=== PATIENT | male | born 1940 | race Caucasian/White ===

== ENCOUNTER 2017-02-04 03:25 | Inpatient (IN) ==
[2017-02-04] MEDS ORDERED: Naloxone 0.4 MG/ML INJ IVP PRN (06:24)
[2017-02-04] MEDS ORDERED: Acetaminophen 325 MG TABLET PO PRN (06:24)
[2017-02-04] MEDS ORDERED: *HR* OxyCODONE Immed Rel 5 MG TABLET PO PRN (06:31)
[2017-02-04] MEDS ORDERED: Ipratropium/Albuterol Neb 3 ML IH PRN (06:35)
--- NOTE | 2017-02-04 06:39 | Internal Med History&Physical ---
Date of Encounter: 02/04/17 Time of Encounter: 06:38 Assessment and Plan (1) Acute cholecystitis Current visit: Yes Status: Acute CT scan of the abdomen showed dilated gallbladder with questionable pericholecystic fluid suggestive of cholecystitis. However, on my clinical exam , there is no tenderness in the RUQ area. Will obtain ultrasound scan of the gallbladder. Emperically started on meropenem. Surgical consultation requested. (2) UTI (urinary tract infection) Current visit: Yes Status: Acute Abnormal urinalysis. Urine cultures and blood cultures requested. Empirically started on meropenem Qualifiers: Urinary tract infection type: site unspecified Hematuria presence: with hematuria Qualified Code(s): N39.0 - Urinary tract infection, site not specified; R31.9 - Hematuria, unspecified (3) Abnormal LFTs Current visit: Yes Status: Acute Possibly due to cholecystitis versus sepsis / infection (4) Bladder cancer Current visit: Yes Status: Chronic Urologist is following the pt. pt has hematuria. Leggett cath in place Qualifiers: Bladder location: lateral wall Qualified Code(s): C67.2 - Malignant neoplasm of lateral wall of bladder (5) Thrombocytopenia Current visit: Yes Status: Acute Suspect is due to acute infection / DIC. Hold aspirin. Fibrinogen level and D- dimers requested. Will request for Hematology / oncology consult. (6) HTN (hypertension) Current visit: Yes Status: Chronic Will hold antihypertensive medications, as the BP is borderline Qualifiers: Hypertension type: essential hypertension Qualified Code(s): I10 - Essential (primary) hypertension (7) Coagulopathy Current visit: Yes Status: Acute Possibly due to Infection / DIC. Fibrinogen level and D-dimers requested. Hematology / Oncology consult (8) Elevated troponin Current visit: Yes Status: Acute Likely secondary to sepsis / demand ischemia. EKG and echocardiogram requested. Trend troponins. Consider Cardiology consult (9) DVT prophylaxis Current visit: Yes Status: Acute SCDs Internal Medicine - H&P: HPI Chief complaint: Nausea Admitted From: Emergency Dept Plans for Post Hospital Care: Home History of present illness: Mr. Bell is a 76 year old male with Past medical history significant for CAD / NC s/p CABG, suspected bladder cancer with hematuria s/p cystoscopy, hyperlipidemia, hypertension. Pt reports that he has not been feeling well for the last 3 days. He reports nausea and one episode of vomiting, poor apetite. Apparently did not eat for a few days. He reports some nauseating pain in the suprapubic area, but denies any epigastric/right upper quadrant pain. He reports hematuria with clots. He denies chest pain. He reports some shortness of breath with exertion. Denies cough or expectoration. He reports dizziness when he stands up. He presented to the ER at [facility]. CT scan of the abdomen reported dilated gallbladder with question of pericholecystic fluid suggestive of cholecystitis. Labs showed Thrombocytopenia with platelet count of 40. ER physician discussed with the surgeon Dr. Blackwood, who recommended admission to the hospitalist service for further management, with surgical consult. Past Med Surg Social Fam HX - Past Medical History Medical history: hyperlipidemia, hypertension, malignancy, myocardial infarction Psychiatric history: no psych history - Past Surgical History Surgical History: angioplasty/stent, cancer surgery, orthopedic, other, pacemaker - Social History Smoking Status: Former smoker Smokeless Tobacco Status: Yes Alcohol use: none Drug use: none - Family History Mother Adopted: No Living Status: Father Adopted: No Living Status: Hx Family Cancer: Yes Internal Medicine - H&P: Meds Amlodipine [Norvasc] 5 mg PO DAILY 09/13/16 [History] Aspirin 325 mg PO DAILY 09/13/16 [History] Carvedilol [Coreg] 25 mg PO BID 09/13/16 [History] Lisinopril/Hydrochlorothiazide [Zestoretic 20-12.5 mg Tablet] 1 each PO DAILY [History] Simvastatin [Zocor] 20 mg PO HS 09/13/16 [History] OxyCODONE Immed Rel [Roxicodone 5 MG] 5 mg PO Q6HR PRN #60 tablet 09/14/16 [Rx] Allergies hydrocodone Allergy (Verified 09/13/16 10:13) Itching tramadol Adverse Reaction (Verified 09/13/16 10:13) Itching All Systems PM: A 10-system review of systems was performed and is negative for pertinent findings except as documented above in the HPI. - Constitutional Vitals: Temp Pulse Resp BP Pulse Ox 98.3 F 88 14 100/66 92 L 02/04/17 05:27 02/04/17 05:27 02/04/17 05:27 02/04/17 05:27 02/04/17 05:27 Exam: General: Not in acute pain at the time of my evaluation. He is not able to complete sentences without feeling short of breath HEENT: Oral mucosa is dry. No conjunctival palor or scleral icterus Neck: No obvious neck swellings Lungs: Clear to auscultation Cardiac: Regular rate and rhythm. No significant murmurs Abdomen: Soft, mild supra-pubic tenderness. Bowel sounds present Genitourinary: No leggett catheter Neurological: Alert and oriented. No gross localizing deficits Psych: Not aggressive or agitated Extremities: Trace leg edema Skin: No generalized rash Internal Med - H&P Results - Labs CBC & Chem 7: 02/04/17 07:08 02/04/17 07:08 - Impressions ITS Impressions Chest X-Ray 02/04/17 06:29 IMPRESSION: 1. Minimal bibasilar opacification, which may represent atelectasis versus airspace disease. 2. Otherwise, no evidence of acute cardiopulmonary abnormality. D/ / Rodney Membreno MD / Rodney Membreno MD Interpreting Provider: Rodney Membreno MD
[2017-02-04] MEDS ORDERED: 0.9 % Sodium Chloride 1,000 ML IVC SCH (06:45)
[2017-02-04 07:23] LABS: Basophils % 0.2 %; Eosinophils % 0.2 %; Hematocrit 40.9 % (37.5-50.1); Hemoglobin 13.2 g/dL (12.9-16.9); Immature Granulocytes % 0.5 % (0-4); Immature Platelets 11.3 % (1.1-6.1); Lymphocytes % 12.2 %; Mean Corpuscular HGB Conc 32.3 g/dL (31.6-35.5); Mean Corpuscular Hemoglobin 27.3 pg (28.0-33.3); Mean Corpuscular Volume 84.5 fL (83.0-100.0); Mean Platelet Volume 10.4 fL (9.4-12.4); Monocytes # 0.9 K/mcL (0.0-1.3); Monocytes % 10.8 %; Neutrophils # 6.1 K/mcL (1.6-8.9); Red Blood Count 4.84 M/mcL (4.19-5.50); Red Cell Distribution Width 14.4 % (11.5-14.5); Segmented Neutrophils % 76.1 %
[2017-02-04] MEDS: Meropenem 1,000 MG in 0.9 % Sodium Chloride Mini Bag 100 ML IVPB SCH ×3 (07:25→21:32)
[2017-02-04 07:28] LABS: INR 2.1; Prothrombin Time 22.6 Seconds (9.4-12.1)
[2017-02-04 07:31] LABS: Activated Partial Thrombo Time 42.8 Seconds (26.0-36.0)
[2017-02-04 07:39] LABS: Alanine Aminotransferase 324 Units/L (0-55); Alkaline Phosphatase 127 Units/L (38-126); Aspartate Amino Transferase 327 Units/L (5-34); BUN/Creatinine Ratio 24 (6-26); Bilirubin,Total 1.1 mg/dL (0.2-1.2); Blood Urea Nitrogen 25 mg/dL (8-26); Calcium 11.7 mg/dL (8.6-10.8); Carbon Dioxide 21 mEq/L (19-29); Chloride 100 mEq/L (98-109); Glucose 86 mg/dL (70-99); Osmolality,Calculated 284 (280-300); Potassium 4.3 mEq/L (3.5-4.5); Sodium 135 mEq/L (136-145); Total Protein 5.9 g/dL (6.0-8.3); eGFR For African Americans > 60 (> 60); eGFR For Non-African Americans > 60 (> 60)
[2017-02-04 07:40] LABS: Albumin 2.5 g/dL (3.5-5.0); Albumin/Globulin Ratio 0.7 (1.1-2.2); Globulin 3.4 g/dL (2.4-3.5)
[2017-02-04 07:56] LABS: Platelet Count 33 K/mcL (140-400)
[2017-02-04 07:57] LABS: Platelet Estimate Marked Decrease (Normal)
--- NOTE | 2017-02-04 08:26 | Urology - Consult Note ---
Date of Encounter: 02/04/17 Time of Encounter: 08:24 - Assessment and Plan (1) Bladder cancer Current Visit: No Status: Acute Assessment and plan: At this point we will plan on keeping catheter in place for 1 day. Patient's urine is currently clear. I am concerned that if the patient's platelets continue to drop and the INR is not corrected the patient will start to develop gross hematuria. We will continue to follow along closely Qualifiers: Bladder location: lateral wall Qualified Code(s): C67.2 - Malignant neoplasm of lateral wall of bladder (2) Thrombocytopenia Current Visit: No Status: Acute Assessment and plan: Hematology has been consulted. Urology CN:HPI Consult date: 02/04/17 Reason for consult Urology: Other (bladder tumor) Requesting physician: Denver Blackwood History of present illness: Ralph is a 76 y/o male with a history of bladder cancer status post left nephroureterectomy in 2003. Patient had surveillance cystoscopies done up until about 6 years ago where he stopped having surveillance cystoscopies. Patient presented to my office this week with off-and-on gross hematuria. Cystoscopy was done which revealed large left lateral wall bladder tumor. Patient now admitted secondary to overall weakness. Patient was found to have profoundly low platelets which is new to the patient where he had normal labs in September. Patient had a catheter placed when arrival to the emergency department. Unsure of volume returned when catheter was placed. Patient's urine was clear. patient was also found to have elevated AST and ALT. CT abdomen and pelvis was done which revealed dilated gallbladder. On personal review the patient's bladder appears thickened on the left lateral wall consistent with known bladder tumor. There also appears to be an extension leaving the left lateral wall consistent with possible remnant left distal ureter. This appears thickened. Patient states that he over all feels very poor. Past Med Surg Social Fam HX - Past Medical History Medical history: hyperlipidemia, hypertension, malignancy, myocardial infarction Psychiatric history: no psych history - Past Surgical History Surgical History: angioplasty/stent, cancer surgery, orthopedic, other, pacemaker - Social History Smoking Status: Former smoker Smokeless Tobacco Status: Yes Alcohol use: none Drug use: none - Family History Mother Adopted: No Living Status: Father Adopted: No Living Status: Hx Family Cancer: Yes Medications and Allergies Amlodipine [Norvasc] 5 mg PO DAILY 09/13/16 [History] Aspirin 325 mg PO DAILY 09/13/16 [History] Carvedilol [Coreg] 25 mg PO BID 09/13/16 [History] Lisinopril/Hydrochlorothiazide [Zestoretic 20-12.5 mg Tablet] 1 each PO DAILY [History] Simvastatin [Zocor] 20 mg PO HS 09/13/16 [History] OxyCODONE Immed Rel [Roxicodone 5 MG] 5 mg PO Q6HR PRN #60 tablet 09/14/16 [Rx] Allergies hydrocodone Allergy (Verified 09/13/16 10:13) Itching tramadol Adverse Reaction (Verified 09/13/16 10:13) Itching Review of Systems - Constitutional malaise - EENT Nose, mouth and throat: no dizziness - Cardiovascular no chest pain - Respiratory dyspnea, no cough - Gastrointestinal abdominal pain - Genitourinary as per HPI - Musculoskeletal no back pain - Integumentary no erythema - Neurological no confusion - Psychiatric no anxiety - Hematologic/Lymphatic no easy bleeding - Allergic/Immunologic no throat swelling Exam Initial Vital Signs Temp Pulse Resp BP Pulse Ox 98.3 F 88 14 100/66 92 L 02/04/17 05:27 02/04/17 05:27 02/04/17 05:27 02/04/17 05:27 02/04/17 05:27 - General physical appearance Present: well developed - Eyes Present: PERRL - ENT Present: normal nares - Neck Present: no masses - Respiratory Present: other (Patient appears to be mildly struggling to get a breath) - Cardiovascular Cardiovascular exam IM: RRR - Abdomen Abdomen: Present: soft - Genitourinary other (Urine clear in tubing) - Integumentary Present: no rash - Neurologic Present: normal coordination - Musculoskeletal Present: other (Full range of motion 4) Urology Results - Labs 02/04/17 07:08 02/04/17 07:08 Abnormal lab results MCH 27.3 pg (28.0-33.3) L 02/04/17 07:08 Plt Count 33 K/mcL (140-400) L 02/04/17 07:08 Platelet Estimate Marked Decrease (Normal) L 02/04/17 07:08 Immature Plt Fraction 11.3 % (1.1-6.1) H 02/04/17 07:08 PT 22.6 Seconds (9.4-12.1) H 02/04/17 07:08 APTT 42.8 Seconds (26.0-36.0) H 02/04/17 07:08 Sodium 135 mEq/L (136-145) L 02/04/17 07:08 Calcium 11.7 mg/dL (8.6-10.8) H 02/04/17 07:08 Magnesium 1.0 mg/dL (1.6-2.6) L 02/04/17 07:08 AST 327 Units/L (5-34) H 02/04/17 07:08 ALT 324 Units/L (0-55) H 02/04/17 07:08 Alkaline Phosphatase 127 Units/L (38-126) H 02/04/17 07:08 Troponin I 0.32 ng/mL (0-0.03) H* 02/04/17 07:08 Serum Total Protein 5.9 g/dL (6.0-8.3) L 02/04/17 07:08 Albumin 2.5 g/dL (3.5-5.0) L 02/04/17 07:08 Albumin/Globulin Ratio 0.7 (1.1-2.2) L 02/04/17 07:08 Diabetes panel 02/04/17 Range/Units 07:08 Sodium 135 L (136-145) mEq/L Potassium 4.3 (3.5-4.5) mEq/L Chloride 100 (98-109) mEq/L Carbon Dioxide 21 (19-29) mEq/L BUN 25 (8-26) mg/dL Creatinine 1.03 (0.72-1.25) mg/dL Glucose 86 (70-99) mg/dL Calcium 11.7 H (8.6-10.8) mg/dL AST 327 H (5-34) Units/L ALT 324 H (0-55) Units/L Alkaline Phosphatase 127 H (38-126) Units/L Albumin 2.5 L (3.5-5.0) g/dL Calcium panel 02/04/17 Range/Units 07:08 Calcium 11.7 H (8.6-10.8) mg/dL Albumin 2.5 L (3.5-5.0) g/dL Pituitary panel 02/04/17 Range/Units 07:08 Sodium 135 L (136-145) mEq/L Potassium 4.3 (3.5-4.5) mEq/L Chloride 100 (98-109) mEq/L Carbon Dioxide 21 (19-29) mEq/L BUN 25 (8-26) mg/dL Creatinine 1.03 (0.72-1.25) mg/dL Glucose 86 (70-99) mg/dL Calcium 11.7 H (8.6-10.8) mg/dL Adrenal panel 02/04/17 Range/Units 07:08 Sodium 135 L (136-145) mEq/L Potassium 4.3 (3.5-4.5) mEq/L Chloride 100 (98-109) mEq/L Carbon Dioxide 21 (19-29) mEq/L BUN 25 (8-26) mg/dL Creatinine 1.03 (0.72-1.25) mg/dL Glucose 86 (70-99) mg/dL Calcium 11.7 H (8.6-10.8) mg/dL Total Bilirubin 1.1 (0.2-1.2) mg/dL AST 327 H (5-34) Units/L ALT 324 H (0-55) Units/L Alkaline Phosphatase 127 H (38-126) Units/L Albumin 2.5 L (3.5-5.0) g/dL All other labs normal. - Imaging CT scan - abdomen: image reviewed CT scan - pelvis: image reviewed Consult Discharge Plan - Plan Referrals: Nikolay Stout Jr, MD [Primary Care Provider] -
--- NOTE | 2017-02-04 08:33 | General Surgery Consult Note ---
Date of Encounter: 02/04/17 Time of Encounter: 08:32 History of Present Illness Consult date: 02/04/17 Requesting physician: Donna Bass History of present illness: Mr. Bell is a 76 year old male with a past medical history significant for bladder cancer who was recently evaluated by urology due to hematuria on where new bladder tumors were discovered. He states that he is scheduled for a urology procedure in February. He admits to a 2-3 day history of right lower abdominal pain, near the pelvis. He admits to occassional nausea and one episode of vomiting. He denies any diarrhea or constipation. Due to his symptoms he presented to [facility] where several studies were performed including a CT scan of the abdomen and pelvis (without contrast) and laboratory studies including LFTs. He has been transferred to [facility] due to elevated liver enzymes and concern for cholecystitis. The patient denies any upper abdominal pain symptoms currently or in the past. He denies any hematemesis or rectal bleeding. Past Med Surg Social Fam HX - Past Medical History Medical history: hyperlipidemia, hypertension, malignancy, myocardial infarction Psychiatric history: no psych history - Past Surgical History Surgical History: angioplasty/stent, cancer surgery, orthopedic, other, pacemaker - Social History Smoking Status: Former smoker Smokeless Tobacco Status: Yes Alcohol use: none Drug use: none - Family History Mother Adopted: No Living Status: Father Adopted: No Living Status: Hx Family Cancer: Yes Medications and Allergies Amlodipine [Norvasc] 5 mg PO DAILY 09/13/16 [History] Aspirin 325 mg PO DAILY 09/13/16 [History] Carvedilol [Coreg] 25 mg PO BID 09/13/16 [History] Lisinopril/Hydrochlorothiazide [Zestoretic 20-12.5 mg Tablet] 1 tab PO DAILY 11/28 [History] Simvastatin [Zocor] 20 mg PO HS 09/13/16 [History] OxyCODONE Immed Rel [Roxicodone 5 MG] 5 mg PO Q8HR PRN 02/04/17 [History] Allergies hydrocodone Allergy (Verified 09/13/16 10:13) Itching tramadol Adverse Reaction (Verified 09/13/16 10:13) Itching Review of Systems All systems PM: reviewed and no additional remarkable complaints except as stated All systems PM: A 10-system review of systems was performed and is negative for pertinent findings except as documented above in the HPI. General Surgery Exam Initial Vital Signs Temp Pulse Resp BP Pulse Ox 98.3 F 88 14 100/66 92 L 02/04/17 05:27 02/04/17 05:27 02/04/17 05:27 02/04/17 05:27 02/04/17 05:27 - Eyes PERRL, normal ocular movement - Neck no masses, trachea midline, no lymphadectomy - Cardiovascular Cardiovascular exam: Present: RRR, no murmurs/rubs/gallops - Abdomen Abdomen general surgery: Present: bowel sounds present, soft (No pain to palpation in the upper abdomen, even with significant palpation in the RUQ. Mild RLQ/pelvic pain.) - Integumentary Integumentary general surgery: Present: warm and dry - Neurologic Present: CN 2-12 grossly intact - Musculoskeletal Present: other (No clubbing, cyanosis, or edema) - Psychiatric Psychiatric general surgery: Present: other (mild confusion/forgetfulness) Exam Initial Vital Signs Temp Pulse Resp BP Pulse Ox 98.3 F 88 14 100/66 92 L 02/04/17 05:27 02/04/17 05:27 02/04/17 05:27 02/04/17 05:27 02/04/17 05:27 Results - Labs 02/05/17 02:20 02/05/17 02:20 Abnormal lab results MCH 27.3 pg (28.0-33.3) L 02/04/17 07:08 Plt Count 33 K/mcL (140-400) L 02/04/17 07:08 Platelet Estimate Marked Decrease (Normal) L 02/04/17 07:08 Immature Plt Fraction 11.3 % (1.1-6.1) H 02/04/17 07:08 PT 22.6 Seconds (9.4-12.1) H 02/04/17 07:08 APTT 42.8 Seconds (26.0-36.0) H 02/04/17 07:08 Sodium 135 mEq/L (136-145) L 02/04/17 07:08 Calcium 11.7 mg/dL (8.6-10.8) H 02/04/17 07:08 Magnesium 1.0 mg/dL (1.6-2.6) L 02/04/17 07:08 AST 327 Units/L (5-34) H 02/04/17 07:08 ALT 324 Units/L (0-55) H 02/04/17 07:08 Alkaline Phosphatase 127 Units/L (38-126) H 02/04/17 07:08 Troponin I 0.32 ng/mL (0-0.03) H* 02/04/17 07:08 Serum Total Protein 5.9 g/dL (6.0-8.3) L 02/04/17 07:08 Albumin 2.5 g/dL (3.5-5.0) L 02/04/17 07:08 Albumin/Globulin Ratio 0.7 (1.1-2.2) L 02/04/17 07:08 Diabetes panel 02/04/17 Range/Units 07:08 Sodium 135 L (136-145) mEq/L Potassium 4.3 (3.5-4.5) mEq/L Chloride 100 (98-109) mEq/L Carbon Dioxide 21 (19-29) mEq/L BUN 25 (8-26) mg/dL Creatinine 1.03 (0.72-1.25) mg/dL Glucose 86 (70-99) mg/dL Calcium 11.7 H (8.6-10.8) mg/dL AST 327 H (5-34) Units/L ALT 324 H (0-55) Units/L Alkaline Phosphatase 127 H (38-126) Units/L Albumin 2.5 L (3.5-5.0) g/dL Calcium panel 02/04/17 Range/Units 07:08 Calcium 11.7 H (8.6-10.8) mg/dL Albumin 2.5 L (3.5-5.0) g/dL Pituitary panel 02/04/17 Range/Units 07:08 Sodium 135 L (136-145) mEq/L Potassium 4.3 (3.5-4.5) mEq/L Chloride 100 (98-109) mEq/L Carbon Dioxide 21 (19-29) mEq/L BUN 25 (8-26) mg/dL Creatinine 1.03 (0.72-1.25) mg/dL Glucose 86 (70-99) mg/dL Calcium 11.7 H (8.6-10.8) mg/dL Adrenal panel 02/04/17 Range/Units 07:08 Sodium 135 L (136-145) mEq/L Potassium 4.3 (3.5-4.5) mEq/L Chloride 100 (98-109) mEq/L Carbon Dioxide 21 (19-29) mEq/L BUN 25 (8-26) mg/dL Creatinine 1.03 (0.72-1.25) mg/dL Glucose 86 (70-99) mg/dL Calcium 11.7 H (8.6-10.8) mg/dL Total Bilirubin 1.1 (0.2-1.2) mg/dL AST 327 H (5-34) Units/L ALT 324 H (0-55) Units/L Alkaline Phosphatase 127 H (38-126) Units/L Albumin 2.5 L (3.5-5.0) g/dL All other labs normal. - Imaging Abdominal x-ray: report reviewed, image reviewed (Initial CT of the abdomen and pelvis performed without contrast which showed possible inflammation of the gallbladder concerning for cholecystitis. Repeat with IV contrast shows multiple hepatic lesions concerning for metastatic disease largest in the dome of the right side of the liver. Nonspecific findings of the gallbladder/ thickening of the gallbladder. Patient had an ultrasound which showed gallstones.) CT scan - chest: report reviewed, image reviewed (No evidence of pulmonary thrombus noted.) Consult Discharge Plan - Plan Instructions: Acute Respiratory Distress Syndrome (DC), Urinary Tract Infection in Men (DC) Referrals: Nikolay Stout Jr, MD [Primary Care Provider] -
[2017-02-04] MEDS ORDERED: Aspirin 325 MG TABLET PO SCH (09:00)
[2017-02-04] MEDS: Magnesium Sulfate 2 GM in D5% in Water 100 ML IVPB SCH ×2 (10:14→12:21)
[2017-02-04 10:22] LABS: D-Dimer 17776 ng/mLFEU (0-500)
--- NOTE | 2017-02-04 10:26 | Oncology Inp Consult Note ---
Date of Encounter: 02/04/17 Time of Encounter: 12:00 Assessment and Plan (1) UTI (urinary tract infection) Status: Acute Assessment and plan: Urinary tract infection, possible sepsis, history of bladder tumor status post cystoscopy with hematuria, coagulopathy and thrombocytopenia. Recommend cultures broad-spectrum antibiotic coverage. Peripheral smear shows normal white blood cell count with numerous hypersegmented neutrophils without immature blasts. Platelets overall decreased in most narayanan. No schistocytes occasional reticulocyte/polychromasia. Overall no signs of bleeding other than hx hematuria. Correct coagulopathy. Fibrinogen is over 100. D dimers are elevayted, with ac SOB-PE still in differential r/o with imaging studies. Consider ICU monitoring. Transfuse platelets to keep over 30 or for gross bleeding. Vitamin K, FFP to correct PT/PTT. No hx tylenol/alcohol use. Add viral hepatitis panel. Plan discussed [facility] patient in detail and hospitalist. Qualifiers: Urinary tract infection type: site unspecified Hematuria presence: with hematuria Qualified Code(s): N39.0 - Urinary tract infection, site not specified; R31.9 - Hematuria, unspecified - Data of Consult Requesting Physician: Ran Bains MD Primary Care Provider: Nikolay Stout Jr, MD - Consult Narrative Reason for consult: thrombocytopenia History of present illness: Mr. Bell is a 76 year old male with medical history significant for bladder cancer, patient had undergone left nephroureterectomy in 2003 cystoscopies. Follow-up until 6 years ago, recently seen in urology office with on and off hematuria and cystoscopy done showed a large left lateral wall bladder tumor. Patient was also noted to have thrombocytopenia with platelet counts of 30-40 pounds and an elevated PT-INR. Hemoglobin was normal white blood cell count was normal. Patient underwent a CT scan of the abdomen that showed a dilated gallbladder, with gallbladder raising suspicion for cholecystitis. Liver function tests, AST ALT are elevated as well as alkaline phosphatase, lipase and hypercalemic. He is short of breath requiring oxygen. Has discomfort in the lower abdomen, feels warm and sweaty. DEnies chest pain or RUQ pain. Past Med Surg Social Fam HX - Past Medical History Medical history: hyperlipidemia, hypertension, malignancy, myocardial infarction Psychiatric history: no psych history - Past Surgical History Surgical History: angioplasty/stent, cancer surgery, orthopedic, other, pacemaker - Social History Smoking Status: Former smoker Smokeless Tobacco Status: Yes Alcohol use: none Drug use: none - Family History Mother Adopted: No Living Status: Father Adopted: No Living Status: Hx Family Cancer: Yes Medications and Allergies Amlodipine [Norvasc] 5 mg PO DAILY 09/13/16 [History] Aspirin 325 mg PO DAILY 09/13/16 [History] Carvedilol [Coreg] 25 mg PO BID 09/13/16 [History] Lisinopril/Hydrochlorothiazide [Zestoretic 20-12.5 mg Tablet] 1 each PO DAILY [History] Simvastatin [Zocor] 20 mg PO HS 09/13/16 [History] OxyCODONE Immed Rel [Roxicodone 5 MG] 5 mg PO Q6HR PRN #60 tablet 09/14/16 [Rx] Allergies hydrocodone Allergy (Verified 09/13/16 10:13) Itching tramadol Adverse Reaction (Verified 09/13/16 10:13) Itching Review of systems: as in HPI Oncology - Exam - Constitutional Vitals: Temp Pulse Resp BP Pulse Ox 98.1 F 87 20 107/70 91 L 02/04/17 08:00 02/04/17 08:00 02/04/17 08:00 02/04/17 08:00 02/04/17 08:00 General appearance: average body habitus, mild distress - Head Head exam: Present: atraumatic - Eye Eye exam: Present: sclera anicteric - ENT ENT exam: Present: mucous membranes dry - Respiratory Respiratory exam: Present: accessory muscle use, CTAB - Cardiovascular Cardiovascular exam: Present: +S1, +S2 - GI/Abdominal GI/Abdominal exam: Present: normal bowel sounds, soft - Extremities Exam Extremities exam: Present: normal inspection Additional comments: no tenderness - Neurological Exam Neurological exam: Present: alert, CN II-XII intact, oriented X3 - Psychiatric Psychiatric exam: Present: normal affect Oncology - Results - Labs Labs: Short CBC 02/04/17 Range/Units 07:08 WBC 8.0 (4.3-11.1) K/mcL Hgb 13.2 (12.9-16.9) g/dL Hct 40.9 (37.5-50.1) % Plt Count 33 L (140-400) K/mcL Neutrophils # 6.1 (1.6-8.9) K/mcL BMP 02/04/17 07:08 Sodium 135 L Potassium 4.3 Chloride 100 Carbon Dioxide 21 BUN 25 Creatinine 1.03 Glucose 86 Calcium 11.7 H Cardiac Enzymes 02/04/17 Range/Units 07:08 Troponin I 0.32 H* (0-0.03) ng/mL Liver Function 02/04/17 Range/Units 07:08 Total Bilirubin 1.1 (0.2-1.2) mg/dL AST 327 H (5-34) Units/L ALT 324 H (0-55) Units/L Alkaline Phosphatase 127 H (38-126) Units/L Albumin 2.5 L (3.5-5.0) g/dL Consult Discharge Plan - Plan Referrals: iNkolay Stout Jr, MD [Primary Care Provider] -
[2017-02-04 10:44] LABS: Fibrinogen 191 mg/dL (169-393)
[2017-02-04] MEDS ORDERED: Dextrose Gel 15 GM PO PRN ×2 (11:09)
[2017-02-04] MEDS ORDERED: *HR* Dextrose 50 % in Water (Syg) 50 ML SYRINGE IVP PRN (11:09)
[2017-02-04] MEDS ORDERED: D5% in Water 1,000 ML IVC PRN (11:09)
--- NOTE | 2017-02-04 12:06 | Pulmonology Consult Note ---
Addendum entered and electronically signed by Rocael Solis DO 15:18: Sepsis: 2nd to endocarditis, also there is possiblity of pneumonia as well. Lactic acid elevated Endocarditis Electrocardiogram shows vegetation on mitral valve Blood cultures ordered Patient given one dose of vancomycin and currently on meropenam. Original Note: <Rocael Solis - Last Filed: 02/04/17 14:51> Date of Encounter: 02/04/17 Time of Encounter: 12:40 Assessment and Plan (1) Thrombocytopenia Current Visit: Yes Status: Acute Arabella is a 76 y/o PMH of CAD/MS s/p CABG (005), bladder cancer s/p left nephroureterectomy 2003, HLD HTN, previous smoker presented with weakness and malaise that was present for 3 days. Patient was recently found to have recurrence of bladder cancer. On admission his platelets were 33, D-dimer 17,776 , INR 2.1, Fibrinogin 191. CTA negative for PE but found liver lesions possible metastasis, and 4mm nodules in lung. 2nd to high tumor burden from bladder cancer and metastatic liver lesions Fibrinogen level is >100 which makes DIC less likely. replacing platelets, FFP, VItamin K hypercalcemia- pamidronate 30mg closely monitor H/H and platelet levels. Keep platelets >30 (2) Acute respiratory failure Current Visit: Yes Status: Acute Patient has history of cigarette use and currently chews tobacco. Since admission his increasingly required more oxygen. Currently we have placed the patient on BiPAP and his respiratory status is stable. This may be secondary to COPD exacerbation. CTA shows groundglass opacities, emphysematous changes. Start Symbicort, duonebs, hydrocortisone. monitor respiratory status closely Qualifiers: Respiratory failure complication: hypoxia Qualified Code(s): J96.01 - Acute respiratory failure with hypoxia (3) Bladder cancer Current Visit: Yes Status: Chronic Status post left nephroureterectomy in 2003 for bladder cancer. Patient recently visited urologists office and had a cystoscopy done revealing a large left lateral wall bladder tumor. CTA shows liver metastasis. Oncology on board as well. Patient was supposed to have a procedure done for removal of bladder cancer in February. Urology is on board. Patient is having nely hematuria. He may need to have a larger caliber urinary catheter placed if current one clots. Qualifiers: Bladder location: lateral wall Qualified Code(s): C67.2 - Malignant neoplasm of lateral wall of bladder (4) Abnormal LFTs Current Visit: Yes Status: Acute CTA shows large liver metastasis. -continue to trend -liver injury from tumor necrosis could be a possibility -INR is elevated, severely thrombocytopenic. (5) Coagulopathy Current Visit: Yes Status: Acute Secondary to high tumor burden. Patient has severe thrombocytopenia, elevated INR. Reversing with FFP, platelets, vitamin K (6) Acute cholecystitis Current Visit: Yes Status: Ruled-out Ultrasound gallbladder showed cholelithiasis, gallbladder wall thickening, pericholecystic fluid. CT abdomen showed thickening gallbladder and cholelithiasis. Negative right upper quadrant pain. Surgery was consulted. They state that patient's condition is less likely from cholecystitis and more from high tumor burden in the liver causing AST ALT elevation. They do not recommend any surgical intervention for the gallbladder at this time. (7) Elevated troponin Current Visit: Yes Status: Acute Patient is status post CABG 4 vessels in 1999. His last echocardiogram showed EF of 55%. Patient denies any chest pain. EKG shows st depression AVL and III He had troponin elevation of 0.32 and 0.58. Cardiology was consultation and state troponin elevation secondary to noncardiac process Repeating echocardiogram. We will hold off on aspirin and statin due to liver dysfunction and coagulopathy. (8) DVT prophylaxis Current Visit: Yes Status: Acute Avoid any medical anticoagulation due to thrombocytopenia History of Present Illness Consult date: 02/04/17 Requesting physician: Ran Bains Reason for consult: other (severe sepsis) Chief complaint: weakness History of present illness: Arabella is a 76 y/o PMH of CAD/MS s/p CABG (005), bladder cancer s/p left nephroureterectomy 2003, HLD HTN, previous smoker presented with weakness and malaise that was present for 3 days. He had nausea, denies vomiting, and pain in the suprapubic area. He has had hematuria with clots. Recently underwent cystoscopy which revealed large left lateral wall badder tumor. He denies cough , hemoptysis, hemetemesis, blood in stool. CT abdomen/pelvis showed dilated gallbladder. Labs showed thrombocytopenia with platelets at 30, lactic acidosis , elevated transaminase levels, elevated troponin of 0.58, d-dimer 17,000, hypercalcemia, elevated PT/INR. Hemoglobin was normal, white blood cell count normal. Initially patient was evaluated by urology, oncology/hematology, general surgery. This morning patient appeared weak, lethargic, sob. He had bright red urine outputting in his leggett. His EKG showed st depressions in leads avl and III. Concern was for PE/MS and patient was sent for stat CTA. Cardiology was consulted as well for further recommendations. Past Med Surg Social Fam HX - Past Medical History Medical history: hyperlipidemia, hypertension, malignancy, myocardial infarction Psychiatric history: no psych history - Past Surgical History Surgical History: angioplasty/stent, cancer surgery, orthopedic, other, pacemaker - Social History Smoking Status: Former smoker Smokeless Tobacco Status: Yes Alcohol use: none Drug use: none - Family History Mother Adopted: No Living Status: Father Adopted: No Living Status: Hx Family Cancer: Yes Medications and Allergies Amlodipine [Norvasc] 5 mg PO DAILY 09/13/16 [History] Aspirin 325 mg PO DAILY 09/13/16 [History] Carvedilol [Coreg] 25 mg PO BID 09/13/16 [History] Lisinopril/Hydrochlorothiazide [Zestoretic 20-12.5 mg Tablet] 1 tab PO DAILY 11/28 [History] Simvastatin [Zocor] 20 mg PO HS 09/13/16 [History] OxyCODONE Immed Rel [Roxicodone 5 MG] 5 mg PO Q8HR PRN 02/04/17 [History] Allergies hydrocodone Allergy (Verified 09/13/16 10:13) Itching tramadol Adverse Reaction (Verified 09/13/16 10:13) Itching All Systems: A 10-system review of systems was performed and is negative for pertinent findings except as documented above in the HPI. - Constitutional Constitutional: fatigue, weakness, no fever(s) - EENT Nose, mouth and throat: disequilibrium, no dizziness, no throat swelling - Cardiovascular Cardiovascular: diaphoresis, dyspnea, no claudication, no leg edema - Respiratory Respiratory: dyspnea, no cough, no hemoptysis - Gastrointestinal Gastrointestinal: nausea, no abdominal pain, no hematemesis, no melena - Genitourinary Genitourinary: hematuria, other (suprapubic pain) - Musculoskeletal Musculoskeletal: abnormal gait - Neurological Neurological: no confusion, no numbness, no tingling - Psychiatric Psychiatric: anxiety Physical Examination Vital Signs: Vital Signs, Last 4 Hours Temp Pulse Resp BP Pulse Ox 02/04/17 10:34 92 L 02/04/17 10:00 97.8 F 65 20 102/68 92 L General appearance: alert, appears uncomfortable Eyes: nonicteric ENT: oropharynx moist Mallampati (class): 3 Neck: no JVD Effort: mildly labored Auscultation: bilateral: diminished breath sounds Cardiovascular: regular rate and rhythm Gastrointestinal: normoactive bowel sounds, soft, non-tender Integumentary: normal Extremities: no cyanosis, no edema, no clubbing, pulses normal normal mental status Results - Laboratory Findings CBC and BMP: 02/04/17 13:20 02/04/17 13:20 PT/INR, D-dimer PT 22.6 Seconds (9.4-12.1) H 02/04/17 07:08 D-Dimer [id number] ng/mLFEU (0-500) H 02/04/17 09:59 Abnormal lab findings: Abnormal lab results MCH 27.3 pg (28.0-33.3) L 02/04/17 07:08 Plt Count 33 K/mcL (140-400) L 02/04/17 07:08 Platelet Estimate Marked Decrease (Normal) L 02/04/17 07:08 Immature Plt Fraction 11.3 % (1.1-6.1) H 02/04/17 07:08 PT 22.6 Seconds (9.4-12.1) H 02/04/17 07:08 APTT 42.8 Seconds (26.0-36.0) H 02/04/17 07:08 D-Dimer 36708 ng/mLFEU (0-500) H 02/04/17 09:59 Sodium 135 mEq/L (136-145) L 02/04/17 07:08 Calcium 11.7 mg/dL (8.6-10.8) H 02/04/17 07:08 Magnesium 1.0 mg/dL (1.6-2.6) L 02/04/17 07:08 AST 327 Units/L (5-34) H 02/04/17 07:08 ALT 324 Units/L (0-55) H 02/04/17 07:08 Alkaline Phosphatase 127 Units/L (38-126) H 02/04/17 07:08 Troponin I 0.58 ng/mL (0-0.03) H* 02/04/17 09:59 Serum Total Protein 5.9 g/dL (6.0-8.3) L 02/04/17 07:08 Albumin 2.5 g/dL (3.5-5.0) L 02/04/17 07:08 Albumin/Globulin Ratio 0.7 (1.1-2.2) L 02/04/17 07:08 - Diagnostic Findings Chest x-ray: report reviewed CT scan - chest: report reviewed - Clinical Findings Intake & Output: Intake & Output 02/03/17 02/04/17 02/04/17 23:59 07:59 15:59 Intake Total 100 / 100 Output Total 200 / 200 Balance -100 / -100 Weight 83.915 kg Consult Discharge Plan - Plan Referrals: Nikolay Stout Jr, MD [Primary Care Provider] - <Jannette Liang - Last Filed: 02/04/17 20:39> All Systems: A 10-system review of systems was performed and is negative for pertinent findings except as documented above in the HPI. Physical Examination Vital Signs: Vital Signs, Last 4 Hours Temp Pulse Resp BP Pulse Ox 02/04/17 12:29 97.7 F 93 25 108/72 96 02/04/17 10:34 92 L 02/04/17 10:00 97.8 F 65 20 102/68 92 L Results - Laboratory Findings CBC and BMP: 02/04/17 16:00 02/04/17 13:20 ABG ABG pH 7.42 pH Units (7.32-7.45) 02/04/17 12:30 ABG pCO2 33 mmHg (35-45) L 02/04/17 12:30 ABG pO2 89 mmHg (85-104) 02/04/17 12:30 ABG O2 Saturation 97 % (95-98) 02/04/17 12:30 PT/INR, D-dimer PT 22.6 Seconds (9.4-12.1) H 02/04/17 07:08 D-Dimer 88816 ng/mLFEU (0-500) H 02/04/17 09:59 Abnormal lab findings: Abnormal lab results MCH 27.3 pg (28.0-33.3) L 02/04/17 07:08 Plt Count 33 K/mcL (140-400) L 02/04/17 07:08 Platelet Estimate Marked Decrease (Normal) L 02/04/17 07:08 Immature Plt Fraction 11.3 % (1.1-6.1) H 02/04/17 07:08 PT 22.6 Seconds (9.4-12.1) H 02/04/17 07:08 APTT 42.8 Seconds (26.0-36.0) H 02/04/17 07:08 D-Dimer 52317 ng/mLFEU (0-500) H 02/04/17 09:59 ABG pCO2 33 mmHg (35-45) L 02/04/17 12:30 ABG Base Excess -2.3 mEq/L (-2.0 to 3.0) L 02/04/17 12:30 Sodium 135 mEq/L (136-145) L 02/04/17 07:08 Lactic Acid 6.0 mmol/L (0.5-2.2) H* 02/04/17 11:30 Calcium 11.7 mg/dL (8.6-10.8) H 02/04/17 07:08 Magnesium 1.0 mg/dL (1.6-2.6) L 02/04/17 07:08 AST 327 Units/L (5-34) H 02/04/17 07:08 ALT 324 Units/L (0-55) H 02/04/17 07:08 Alkaline Phosphatase 127 Units/L (38-126) H 02/04/17 07:08 Troponin I 0.58 ng/mL (0-0.03) H* 02/04/17 09:59 Serum Total Protein 5.9 g/dL (6.0-8.3) L 02/04/17 07:08 Albumin 2.5 g/dL (3.5-5.0) L 02/04/17 07:08 Albumin/Globulin Ratio 0.7 (1.1-2.2) L 02/04/17 07:08 - Clinical Findings Intake & Output: Intake & Output 02/03/17 02/04/17 02/04/17 23:59 07:59 15:59 Intake Total 204 / 204 Output Total 200 / 200 Balance / 4 Weight 83.915 kg 84.3 kg - Attending Attestation I examined this patient and my medical decision-making was reviewed with the BEHAVIORAL SCIENCES DEPARTMENT CHAIR/PA/Advanced Practice Nurse/Resident Physician. I agree with the documented findings, disposition and treatment plan as described except to the extent set forth below. Patient seen and examined. Labs, radiology, chart personally reviewed. 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 especially with his underlying emphysema. He is requiring higher FIO2 need now. I placed him on NIV and with his underlying lung disease, I suspect with fluid resuscitation and replacement of blood products he could deteriorate further and may need invasive mechanical ventilation. I explained this to the patient and trying to reach his without success to discuss his CODE STATUS. A few prognosis is very poor especially with his liver and even possible lung metastasis. I will start him on systemic steroid for this COPD and bronchodilators. Cardiovascular: Patient has history of cardiomyopathy status post ICD. Consulted cardiology mainly to take cardiology opinion about elevated cardiac enzymes and he has thrombocytopenia. Echocardiogram is ordered. No anticoagulation for now. GI: Nutrition per dietary and GI prophylaxis per routine. Keep patient nothing by mouth for now Heme: DVT prophylaxis per routine. Patient is coagulopathic and thrombocytopenic related to his underlying advance malignancies and liver metastasis. I discussed with oncologist and we will use platelets especially with his hematuria and FFP with vitamin K ID: Continue antibiotics and plan to de-escalation. Discussed with Dr. Blackwood regarding question about cholecystitis as a source of possible severe sepsis, however we both felt this could be more malignancy than infection as a source, especially if urine comes back clean. However, infection in immune compromised patient is still on top differential diagnosis. Renal; urine out put and renal funtion reviewed. Patient has hematuria and urology has been consulted. Endorcine: blood glucose is monitored. Steroid. Lines: all lines checked and no evidence of infections Skin: skin care to prevent pressure ulcers per nursing routine care I spent 40 min of Critical Care time with this patient. It involved decision making of high complexity to assess, manipulate, and support vital organ system failure and/or to prevent further life threatening deterioration of the patient' s condition. The time involved in the performance of separately reportable procedures was not counted toward critical care time.
[2017-02-04] MEDS ORDERED: Vancomycin 1,250 MG in D5% in Water 250 ML IVPB ONE (12:14)
[2017-02-04] MEDS ORDERED: Pamidronate 30 MG in 0.9 % Sodium Chloride 500 ML IVPB ONE (12:28)
[2017-02-04 12:44] LABS: ABG Base Excess -2.3 mEq/L (-2.0 to 3.0); ABG HCO3 21.4 mEQ/L (21-27); ABG Oxygen Saturation 97 % (95-98); ABG PCO2 33 mmHg (35-45); ABG PH 7.42 pH Units (7.32-7.45); ABG PO2 89 mmHg (85-104); ABG TCO2 22.4 mEq/L (20-26)
[2017-02-04 12:53] LABS: Blood Gas FiO2 60 %; Blood Gas Respiration Rate 8
[2017-02-04] MEDS ORDERED: 0.9 % Sodium Chloride 500 ML ONE (13:09)
--- NOTE | 2017-02-04 13:15 | Cardiology Consult Note ---
Date of Encounter: 02/04/17 Time of Encounter: 13:13 Assessment and Plan (1) Elevated troponin Current Visit: Yes Status: Acute Mild troponin elevation, 0.32, 0.58, likely de in the setting of UTI, Sepsis, and metastatic bladder cancer. Continue to trend . Check TTE. Not a candidate at this time for invasive evaluation secondary to thrombocytopenia and multiple comorbidities. (2) CAD (coronary artery disease) Current Visit: No Status: Chronic History of CABG 4 vessels in 1999. Continue aspirin, statin, and beta jayy. History of a ischemic cardio myopathy that since improved. Last TTE showed an EF of 55%. He currently appears to be euvolemic on exam. BNP was normal. No CHF seen on CTA. Qualifiers: Coronary Disease-Associated Artery/Lesion type: [place] artery [place] vs. transplanted heart: [place] heart Associated angina: without angina Qualified Code(s): I25.10 - Atherosclerotic heart disease of [place] coronary artery without angina pectoris Discussion w patient/family: The assessment and plan as outlined above was discussed with the patient and/or family members who expressed understanding and agreement. All questions were answered. Thank you for involving us in the care of your patient. Please call with any questions. History of Present Illness Consult date: 02/04/17 Requesting physician: Jannette Liang Consult reason: elevated troponin Chief complaint: SOB, hematuria, n/v History of present illness: Mr. Bell is a 76 year old male with a history of ischemic dilated cardimyopathy, 4V CABG in 1999, PVC's, atrial fib and has an ICD in place due to VT, and suspected bladder cancer. Initially presented to the hospital with a complain of overall not feeling well, nausea and vomiting, dizziness standing, and shortness of breath and hematuria. He was diagnosed with a bladder tumor with metastases to the liver and possibly lungs. Is also found to have UTI, thrombocytopenia, and possible cholecystitis. Today he became increasingly short of breath. CTA was negative for PE. He required transfer to ICU and is now on bipap. He was found to have troponin elevation and cardiology was consulted. He denies chest discomfort. Last echocardiogram on 04/21/2015 showed an EF of 55% and no significant valvular disease. Past Med Surg Social Fam HX - Past Medical History Medical history: cardiomyopathy, coronary artery disease, hyperlipidemia, hypertension, malignancy, myocardial infarction Psychiatric history: no psych history - Past Surgical History Surgical History: angioplasty/stent, cancer surgery, orthopedic, other, pacemaker - Social History Smoking Status: Former smoker Smokeless Tobacco Status: Yes Alcohol use: none Drug use: none - Family History Mother Adopted: No Living Status: Father Adopted: No Living Status: Hx Family Cancer: Yes Medications and Allergies Amlodipine [Norvasc] 5 mg PO DAILY 09/13/16 [History] Aspirin 325 mg PO DAILY 09/13/16 [History] Carvedilol [Coreg] 25 mg PO BID 09/13/16 [History] Lisinopril/Hydrochlorothiazide [Zestoretic 20-12.5 mg Tablet] 1 tab PO DAILY 11/28 [History] Simvastatin [Zocor] 20 mg PO HS 09/13/16 [History] OxyCODONE Immed Rel [Roxicodone 5 MG] 5 mg PO Q8HR PRN 02/04/17 [History] Allergies hydrocodone Allergy (Verified 09/13/16 10:13) Itching tramadol Adverse Reaction (Verified 09/13/16 10:13) Itching All Systems Review: A 10-system review of systems was performed and is negative for pertinent findings except as documented above in the HPI. Physical Examination Vital Signs, Last 4 Hours Temp Pulse Resp BP Pulse Ox 02/04/17 12:45 93 02/04/17 12:29 97.7 F 93 25 108/72 96 02/04/17 10:34 92 L 02/04/17 10:00 97.8 F 65 20 102/68 92 L General: Other (On bipap, labored respirations, ill appearing) HEENT: Atraumatic, Normocephaly, Mucus Membranes Moist Neck: No JVD, Normal carotid pulses Cardiac: Reg Rate and Rhythm, Normal S1 and S2, No Murmur Lungs: Normal Breath Sounds, No Wheeze, Rales, Rhonchi Neuro: Alert and responsive, No focal deficits noted Abdomen: Soft, Non-Tender Skin: Other (Mild jaundice) Musculoskeletal: No Chest Wall Tenderness Extremities: No Clubbing, No Cyanosis, No Edema, Normal Pulses Results 02/04/17 07:08 02/04/17 07:08 Lab Results 02/04/17 02/04/17 02/04/17 07:08 07:08 07:08 WBC 8.0 Hgb 13.2 Hct 40.9 Plt Count 33 L INR 2.1 APTT 42.8 H D-Dimer Sodium 135 L Potassium 4.3 Chloride 100 Carbon Dioxide 21 BUN 25 Creatinine 1.03 Glucose 86 Calcium 11.7 H Magnesium 1.0 L Total Bilirubin 1.1 AST 327 H ALT 324 H Alkaline Phosphatase 127 H Troponin I B-Natriuretic Peptide 02/04/17 02/04/17 02/04/17 07:08 09:59 09:59 WBC Hgb Hct Plt Count INR APTT D-Dimer 36230 H Sodium Potassium Chloride Carbon Dioxide BUN Creatinine Glucose Calcium Magnesium Total Bilirubin AST ALT Alkaline Phosphatase Troponin I 0.32 H* 0.58 H* B-Natriuretic Peptide 02/04/17 09:59 WBC Hgb Hct Plt Count INR APTT D-Dimer Sodium Potassium Chloride Carbon Dioxide BUN Creatinine Glucose Calcium Magnesium Total Bilirubin AST ALT Alkaline Phosphatase Troponin I B-Natriuretic Peptide 80 Chest X-Ray 02/04/17 06:29 IMPRESSION: 1. Minimal bibasilar opacification, which may represent atelectasis versus airspace disease. 2. Otherwise, no evidence of acute cardiopulmonary abnormality. D/ / Rodney Membreno MD / Rodney Membreno MD Interpreting Provider: Rodney Membreno MD Gallbladder Ultrasound 02/04/17 06:39 IMPRESSION: Cholelithiasis, gallbladder wall thickening, and pericholecystic fluid, concerning for cholecystitis in the appropriate clinical setting. Fatty liver. Right renal pelviectasis. D/ / Sergio Recio MD / Sergio Recio MD Interpreting Provider: Sergio Recio MD Chest CTA 02/04/17 10:00 IMPRESSION: 1. No acute pulmonary emboli. 2. New trace effusions with mild atelectasis. There are some right upper lobe subcentimeter subsolid nodules with a 4 mm solid component. This could represent possible pulmonary metastatic disease with perilesional hemorrhage, other consideration includes acute developing infectious process. Emphysema present. 3. Mild cardiomegaly with coronary and aortic atherosclerosis. No aortic dissection. Left-sided pacemaker with a right ventricular lead that demonstrates chronic extension beyond the myocardial wall. There is no acute hemorrhage or pericardial effusion. This appears unchanged compared to a prior CT abdomen/pelvis 09/29/2009. 4. Extensive hepatic metastatic disease with the dominant lesion in the hepatic dome. 5. Nonspecific gallbladder wall thickening with gallbladder fossa and jagjit hepatic inflammation. No significant biliary dilatation. Cholelithiasis was demonstrated on a prior ultrasound 02/04/2017. 6. Mild progressive ascites. No bowel obstruction or evidence of perforation. 7. A Lynn catheter is noted in the bladder. The bladder demonstrates irregular wall thickening suspicious for persistence bladder cancer with a posterolateral diverticulum and possible infiltration of the left seminal vesicle. D/ / 02/04/2017 13:04:51 Feroz Rod MD / lisset Interpreting Provider: Feroz Rod MD Abdomen/Pelvis CT 02/04/17 11:15 IMPRESSION: 1. No acute pulmonary emboli. 2. New trace effusions with mild atelectasis. There are some right upper lobe subcentimeter subsolid nodules with a 4 mm solid component. This could represent possible pulmonary metastatic disease with perilesional hemorrhage, other consideration includes acute developing infectious process. Emphysema present. 3. Mild cardiomegaly with coronary and aortic atherosclerosis. No aortic dissection. Left-sided pacemaker with a right ventricular lead that demonstrates chronic extension beyond the myocardial wall. There is no acute hemorrhage or pericardial effusion. This appears unchanged compared to a prior CT abdomen/pelvis 09/29/2009. 4. Extensive hepatic metastatic disease with the dominant lesion in the hepatic dome. 5. Nonspecific gallbladder wall thickening with gallbladder fossa and jagjit hepatic inflammation. No significant biliary dilatation. Cholelithiasis was demonstrated on a prior ultrasound 02/04/2017. 6. Mild progressive ascites. No bowel obstruction or evidence of perforation. 7. A Lynn catheter is noted in the bladder. The bladder demonstrates irregular wall thickening suspicious for persistence bladder cancer with a posterolateral diverticulum and possible infiltration of the left seminal vesicle. D/ / 02/04/2017 13:04:51 Feroz Rod MD / lisset Interpreting Provider: Feroz Rod MD - Imaging and Cardiology Echo: pending, report reviewed Consult Discharge Plan - Plan Referrals: Nikolay Stout Jr, MD [Primary Care Provider] -
[2017-02-04 13:40] LABS: Basophils % 0.2 %; Eosinophils % 0.2 %; Monocytes % 9.4 %; Red Cell Distribution Width 14.6 % (11.5-14.5)
--- NOTE | 2017-02-04 13:42 | Event Note ---
Date of Encounter: 02/04/17 Time of Encounter: 13:40 Due to a computer issue and was not able to complete my consultation note for this patient. My assessment is abnormal CT scan of the abdomen and pelvis. The patient's physical examination did not match with these initial CT scan findings nor his laboratory studies of thrombocytopenia and elevated INR. These levels or values were normal back in September 2016. My concern was that the findings are concerning for cholecystitis were actually a red francis for some other process, particularly given the patient being completely asymptomatic in the right upper quadrant upon palpation. Repeat CT scan with IV contrast showed no evidence of pulmonary thrombus and demonstrates multiple hepatic masses which may very well explain the patient's overall symptomatology and laboratory abnormalities. Unfortunately, I think that he is having a response to the high tumor burden in the liver which is causing elevation of his AST, ALT as well as functional components of the liver including the PT INR. I do not think that any type of surgical intervention is necessary regarding the gallbladder at this time. Follow with you.
[2017-02-04 13:43] LABS: Hematocrit 38.2 % (37.5-50.1); Hemoglobin 12.3 g/dL (12.9-16.9); Immature Granulocytes % 0.5 % (0-4); Immature Platelets 11.3 % (1.1-6.1); Lymphocytes # 0.7 K/mcL (0.6-4.6); Lymphocytes % 8.2 %; Mean Corpuscular HGB Conc 32.2 g/dL (31.6-35.5); Mean Corpuscular Hemoglobin 27.6 pg (28.0-33.3); Mean Corpuscular Volume 85.7 fL (83.0-100.0); Monocytes # 0.8 K/mcL (0.0-1.3); Neutrophils # 6.9 K/mcL (1.6-8.9); Red Blood Count 4.46 M/mcL (4.19-5.50); Segmented Neutrophils % 81.5 %
[2017-02-04 13:49] LABS: Alanine Aminotransferase 323 Units/L (0-55); Albumin 2.2 g/dL (3.5-5.0); Albumin/Globulin Ratio 0.8 (1.1-2.2); Alkaline Phosphatase 120 Units/L (38-126); Aspartate Amino Transferase 352 Units/L (5-34); BUN/Creatinine Ratio 26 (6-26); Bilirubin,Direct 0.9 mg/dL (0.0-0.5); Bilirubin,Indirect 0.5 mg/dL (0.0-1.2); Bilirubin,Total 1.4 mg/dL (0.2-1.2); Blood Urea Nitrogen 26 mg/dL (8-26); Carbon Dioxide 18 mEq/L (19-29); Chloride 101 mEq/L (98-109); Globulin 2.7 g/dL (2.4-3.5); Glucose 178 mg/dL (70-99); Osmolality,Calculated 285 (280-300); Potassium 3.8 mEq/L (3.5-4.5); Sodium 133 mEq/L (136-145); Total Protein 4.9 g/dL (6.0-8.3); eGFR For African Americans > 60 (> 60); eGFR For Non-African Americans > 60 (> 60)
[2017-02-04 13:51] LABS: Platelet Count 29 K/mcL (140-400)
[2017-02-04 14:57] LABS: Hepatitis B Surface Antigen Nonreactive (Nonreactive)
[2017-02-04] MEDS ORDERED: *HR* Morphine 2 MG/ML SYRINGE IVP PRN (15:33)
--- NOTE | 2017-02-04 15:33 | ECHO - Doppler Report ---
Echocardiogram Name: Ralph Bell Date of Study: 02/04/2017 Date: 1940 Ht: 69.0 in Medical Record#: [id number] Age: 76 Wt: 185.0 lb Gender: Male BSA: 2 Order #: [id number] Location: [facility] Room #: IC6 Reading Physician: Dmitry Taylor MD, [facility] Natural Resources Specialist: Raisa Quick Ordering Physician: Rocael Solis DO Primary Physician: Nikolay Stout MD Indications: Elevated troponin Impressions: Normal LV systolic function, LVEF 55%. Mild left ventricular diastolic dysfunction. Dilated right ventricle with mild-moderate RV hypokinesis. A device lead was visualized in the right atrium and right ventricle. There is a mobile echodensity attached to the anterior leaflet of the mitral valve. Consider infective endocarditis. Trace mitral regurgitation. Mild tricuspid regurgitation. Mild-moderate pulmonic regurgitation. Moderate pulmonary hypertension. Estimated RVSP = 53 mmHg. Left Ventricular Wall Motion: Rest Echo Findings All wall segments showed normal motion. Findings: Study Quality * Suboptimal echo windows. ECG Findings * Normal sinus rhythm. Left Ventricle * Normal LV systolic function, LVEF 55%. * Normal LV chamber size and wall thickness. * Mild left ventricular diastolic dysfunction. Right Ventricle * Dilated right ventricle with mild-moderate RV hypokinesis. Device lead * A device lead was visualized in the right atrium and right ventricle. Left Atrium * Normal left atrial size. Right Atrium * Normal right atrial size. Aorta * Normally sized aortic root. Pericardium * There is a trivial pericardial effusion present. IVC * The IVC is not dilated. Aortic Valve * Trileaflet aortic valve. * Mildly sclerotic aortic valve leaflets. * No aortic stenosis. * No aortic regurgitation. Mitral Valve * There is a mobile echodensity attached to the anterior leaflet of the mitral valve. Consider infective endocarditis. * No mitral stenosis. * Trace mitral regurgitation. Tricuspid Valve * Normal tricuspid valve structure. * No tricuspid stenosis. * Mild tricuspid regurgitation. * Moderate pulmonary hypertension. Estimated RVSP = 53 mmHg. Pulmonic Valve * Normal pulmonic valve structure. * No pulmonic stenosis. * Mild-moderate pulmonic regurgitation. History Hypertension Hypercholesteremia Years 40 Packs 1 Family History of CAD History of CAD/PTCA Myocardial Infarction Coronary Artery Bypass Graft 04/21/2015 a Previous Echo was performed. Measurements: BP: 102/ 68 2D Normal Values IVSd: 1.00 cm 0.6 - 1.0 cm LVIDd: 4.30 cm 3.7 - 5.6 cm LVPWd: 1.00 cm 0.6 - 1.1 cm LVIDs: 2.90 cm 1.5 - 3.6 cm AO: 3.50 cm < 4.0 cm LA volume: 40 Mitral Valve Peak E:.38 m/sec Peak A:.58 m/sec E/A Ratio:0.6 Tricuspid Valve TV Regurg Peak Grad: 48.00mmHg TV Regurg Peak Kieran: 3.50m/sec Updated by Dmitry Taylor MD, [facility] on 02/04/2017 3:26:58 PM electronically signed on 02/04/2017 3:27:42 PM with status of Final Wall Motion Lobo: 1=Normal, 2=Hypokinesis, 3=Akinesis, 4=Dyskinesis, 5=Aneurysmal, 6=Hyperkinetic, X=Not Visualized (Blank)=Missing
[2017-02-04] MEDS: Hydrocortisone Sodium Succ 100 MG/2 ML VIAL IVP SCH ×2 (16:02→23:03)
[2017-02-04] MEDS: Ipratropium/Albuterol Neb 3 ML IH SCH ×3 (16:14→21:24)
[2017-02-04 16:18] LABS: Hemoglobin 11.9 g/dL (12.9-16.9); Mean Corpuscular Hemoglobin 27.5 pg (28.0-33.3); Red Blood Count 4.33 M/mcL (4.19-5.50); Red Cell Distribution Width 14.5 % (11.5-14.5)
[2017-02-04 16:20] LABS: Hematocrit 36.7 % (37.5-50.1); Immature Platelets 6.2 % (1.1-6.1); Mean Corpuscular HGB Conc 32.4 g/dL (31.6-35.5); Mean Corpuscular Volume 84.8 fL (83.0-100.0); Mean Platelet Volume 9.7 fL (9.4-12.4)
[2017-02-04 16:27] LABS: INR 1.8; Prothrombin Time 19.2 Seconds (9.4-12.1)
[2017-02-04] MEDS ORDERED: 0.9 % Sodium Chloride 250 ML ONE (17:29)
[2017-02-04] MEDS ORDERED: methylPREDNISolone 125 MG/2 ML VIAL IVP SCH (18:00)
--- NOTE | 2017-02-04 20:36 | Event Note ---
Date of Encounter: 02/04/17 Time of Encounter: 10:00 Patient evaluated at the bedside. He reports moderate to severe shortness of breath at rest appears to be tachypneic. On exam he is in no acute distress, ill-appearing. Heart regular rhythm and rhythm S1-S2 lungs diminished bilaterally. Abdomen soft nontender nondistended Laboratory data was reviewed, pertinent included platelet count 40 and repeat platelet count dropping to 33. Troponin 0.32 and increasing to 0.54. D-dimer is greater than 17,000. CT of the abdomen and pelvis shows distended gallbladder. Urinalysis is positive for WBC. Assessment and plan: Severe sepsis with possible type II AMI and likely DIC, source likely urinary. We will treat him with IV fluids IV meropenem, consider IV vancomycin, obtain lactic acid level, follow-up blood cultures and urine culture. I have discussed the case with transit manager recommends FFP's to reverse the coagulopathy induced by DIC. I discussed the case with Dr Tobin and he accepted to transfer the patient to the ICU under his care.
[2017-02-04] MEDS ORDERED: D5% in 0.9% NACL 1,000 ML IVC SCH (20:45)
[2017-02-04] MEDS ORDERED: Vancomycin 1,250 MG in D5% in Water 250 ML IVPB SCH (21:00)
[2017-02-04 21:13] LABS: ABG Base Excess -9.8 mEq/L (-2.0 to 3.0); ABG HCO3 13.6 mEQ/L (21-27); ABG Oxygen Saturation 95 % (95-98); ABG PCO2 23 mmHg (35-45); ABG PH 7.38 pH Units (7.32-7.45); ABG PO2 78 mmHg (85-104); ABG TCO2 14.3 mEq/L (20-26); Blood Gas FiO2 60 %
[2017-02-04] MEDS ORDERED: Norepinephrine 4 MG in D5% in Water 250 ML IVC SCH (21:15)
[2017-02-04 21:56] LABS: Calcium 11.6 mg/dL (8.6-10.8); Potassium 4.6 mEq/L (3.5-4.5)
[2017-02-04] MEDS ORDERED: Budesonide/Formoterol 160/4.5 MDI IH SCH (22:00)
[2017-02-04] MEDS ORDERED: Lactulose 200 GM, Sodium Chloride IRRigation 700 ML RC ONE (22:42)
[2017-02-04 23:18] LABS: Basophils % 0.1 %; Eosinophils % 0.1 %
[2017-02-04 23:20] LABS: Hematocrit 37.6 % (37.5-50.1); Immature Granulocytes % 0.4 % (0-4); Immature Platelets 10.4 % (1.1-6.1); Lymphocytes # 0.8 K/mcL (0.6-4.6); Lymphocytes % 9.1 %; Mean Corpuscular HGB Conc 31.9 g/dL (31.6-35.5); Mean Corpuscular Hemoglobin 27.9 pg (28.0-33.3); Mean Corpuscular Volume 87.4 fL (83.0-100.0); Mean Platelet Volume 11.1 fL (9.4-12.4); Monocytes # 0.7 K/mcL (0.0-1.3); Monocytes % 8.5 %; Neutrophils # 6.8 K/mcL (1.6-8.9); Platelet Count 35 K/mcL (140-400); Red Cell Distribution Width 14.8 % (11.5-14.5); Segmented Neutrophils % 81.8 %
[2017-02-04 23:43] LABS: Magnesium 2.5 mg/dL (1.6-2.6)
[2017-02-05] MEDS: Ipratropium/Albuterol Neb 3 ML IH SCH (00:37)
[2017-02-05] MEDS ORDERED: D5% in Water 1,000 ML IVC ONE (01:59)
[2017-02-05 02:28] LABS: Basophils % 0.2 %
--- NOTE | 2017-02-05 02:28 | Procedure Note ---
Date of procedure: 02/05/17 Pre-op diagnosis: Cardiac Arrest Post-op diagnosis: same Procedure: Central Venous Catheter (CVC, Central Line) Placement Date: 02/05/17 Time: 0145 Indication: Hemodynamic monitoring/Intravenous access Resident: Dr. Persaud Attending: Patient had just had return of spontaneous circulation after cardiac arrest and was in supine position. The patients right groin was prepped and draped in sterile fashion. A triple lumen 9-Arabic Cordis catheter was introduced into the common femoral vein using the Seldinger technique and under ultrasound guidance. The catheter was threaded smoothly over the guide wire and appropriate blood return was obtained. Each lumen of the catheter was evacuated of air and flushed with sterile saline. The catheter was then sutured in place to the skin and a sterile dressing applied. Perfusion to the extremity distal to the point of catheter insertion was checked and found to be adequate. Dr. Dickerson and Dr. Bass was present for the entire procedure. Estimated Blood Loss: 10cc The patient tolerated the procedure well and there were no complications. Anesthesia: none Surgeon: Herb Persaud Web Applications Developer: Darwin Dickerson Estimated blood loss (cc): 10 IV fluids (cc): 500 Urine output (cc): 0 Pathology: none sent Condition: critical Disposition: ICU
[2017-02-05 02:30] LABS: Eosinophils % 0.2 %; Immature Granulocytes % 2.5 % (0-4); Immature Platelets 12.9 % (1.1-6.1); Lymphocytes # 1.7 K/mcL (0.6-4.6); Lymphocytes % 15.5 %; Mean Corpuscular HGB Conc 29.7 g/dL (31.6-35.5); Mean Corpuscular Hemoglobin 27.5 pg (28.0-33.3); Mean Corpuscular Volume 92.5 fL (83.0-100.0); Mean Platelet Volume 11.1 fL (9.4-12.4); Monocytes # 1.1 K/mcL (0.0-1.3); Monocytes % 10.2 %; Neutrophils # 7.8 K/mcL (1.6-8.9); Nucleated Red Blood Cells 0.5 /100 WBC (0); Segmented Neutrophils % 71.4 %
--- NOTE | 2017-02-05 02:30 | Event Note ---
Date of Encounter: 02/05/17 Time of Encounter: 02:30 On-call physician note: KARLI PISANO was called at 0140. On-call hospitalists Dr. Bass, Dr. Dickerson, resident Dr Jayjay Persaud attended the code. On my arrival, chest compressions were underway and patient was on bag and mask. Patient apparently had pulseless electrical activity. On the property assessment monitor patient had a paced rhythm but no pulses felt. Per the ACLS protocol, the patient was given chest compressions and epinephrine. Patient was noted to be acidotic with low bicarbonate on the recent labs and hence bicarbonate boluses and infusion were given (PH on the AB.99). Patient was on norepinephrine infusion at 4 g and was going through peripheral access. The rate was increased to 8 g. IV fluid boluses given. Decision was made to intubate the patient and central venous access from the right femoral access was obtained. Patient had return of spontaneous circulation but continued to lose cardiac output and required multiple cycles of cardiac compressions and the epinephrine (as detailed in the log). Patient was started on epinephrine infusion. But there was no sustained cardiac output. Code continued for about 1 hour 20 minutes. Patient's and family members (sister, [id number]) came to the ICU. I have discussed with family members, along with the house co-ordinator - explained them the medical condition and treatment given so far. I have answered all their questions. Patient's indicated that the patient did not want to be on life support and she wanted him to be taken off the life support. Hence further resuscitation efforts were discontinued and ventilator was discontinued. The time of is 03:08 on 02/05/2017. May his soul rest in peace.
[2017-02-05 02:33] LABS: INR 2.3; Prothrombin Time 25.4 Seconds (9.4-12.1)
[2017-02-05 02:33] LABS: ABG Base Excess -20.2 mEq/L (-2.0 to 3.0); ABG HCO3 10.4 mEQ/L (21-27); ABG Oxygen Saturation 67 % (95-98); ABG PCO2 43 mmHg (35-45); ABG PO2 55 mmHg (85-104); ABG TCO2 11.7 mEq/L (20-26)
[2017-02-05 02:34] LABS: Blood Gas FiO2 100 %
[2017-02-05 02:35] LABS: ABG PH 6.99 pH Units (7.32-7.45)
[2017-02-05 02:36] LABS: Platelet Count 31 K/mcL (140-400)
[2017-02-05 02:43] LABS: Albumin 2.3 g/dL (3.5-5.0); Albumin/Globulin Ratio 0.9 (1.1-2.2); Bilirubin,Direct 1.2 mg/dL (0.0-0.5); Bilirubin,Indirect 0.7 mg/dL (0.0-1.2); Bilirubin,Total 1.9 mg/dL (0.2-1.2); Globulin 2.7 g/dL (2.4-3.5)
[2017-02-05 02:49] LABS: Albumin 2.2 g/dL (3.5-5.0); Albumin/Globulin Ratio 0.8 (1.1-2.2); Bilirubin,Total 1.9 mg/dL (0.2-1.2); Calcium 10.4 mg/dL (8.6-10.8); Globulin 2.8 g/dL (2.4-3.5); Magnesium 2.6 mg/dL (1.6-2.6); Phosphorous 6.9 mg/dL (2.3-4.7); Potassium 4.9 mEq/L (3.5-4.5)
[2017-02-05] MEDS ORDERED: Vancomycin 1,250 MG in D5% in Water 250 ML IVPB SCH ×2 (03:00→15:00)
[2017-02-05 03:46] VITALS: BP 104/57
[2017-02-05] MEDS ORDERED: *HR* EPINEPHrine 30 MG/30 ML MDV IM ONE ×2 (04:29)
[2017-02-05] MEDS ORDERED: Meropenem 1,000 MG in 0.9 % Sodium Chloride Mini Bag 100 ML IVPB SCH (09:00)
--- NOTE | 2017-02-05 16:19 | Death Note ---
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 Patient was recently found to have recurrence of bladder cancer. On admission his platelets were 33, D-dimer 17,776 , INR 2.1, Fibrinogin 191. CTA negative for PE but found liver lesions possible metastasis, and 4mm nodules in lung. We replaced FFP. Patient has been given vitamin K. He has been given pamidronate for hypercalcemia. Echocardiogram showed a vegetation on the mitral valve. Patient has received vancomycin and is on meropenem. Family was told about severe to patient's situation and asked if patient still wanted to be full code. Family stated they needed time to talk this through. Code was called at 1:40 AM. , Dr. Johnson, and resident Dr. Jayjay Persaud attended to the code. Patient underwent chest compressions, was intubated per ACLS protocol. Repeat ABG showed severe acidosis pH 6.99. Code lasted for 1 hour and 20 minutes. Central venous access is placed and he was started on pressors however his cardiac output could not be sustained. Family made the decision to forego any life support measures. Further resuscitation efforts were stopped and the ventilator was discontinued. - Additional Data Confirmation of as documented by pronouncing clinician: no pulse, no heart sounds Family: at bedside Attending/PCP notified?: Yes Attending physician: Ran Bains MD Was code activated?: Yes Discharge Sum: Diag - PCOD Probable Cause of : Cardiac arrest Discharge Sum: Prov - Provider Primary care physician: Nikolay Stout Jr, MD Admitting clinician: Donna Bass Attending physician on admission: Jannette Liang Consults: 02/04/17 06:32 Consult to Oncology Hematology [CONS] Routine Consulting Provider: Jayant Ponce Reason for Consult: Thrombocytopenia Time Notified: 10:37 Call Completed: Yes 02/04/17 06:55 Consult to Surgery [CONS] Routine Consulting Provider: [facility] Reason for Consult: suspected cholecystitis (Dr Blackwood is aware of the pt) Call Completed: No 02/04/17 08:34 Consult to Urology [CONS] Stat Consulting Provider: Urology [facility] Reason for Consult: History bladder cancer Time Notified: 07:30 Call Completed: Yes 02/04/17 11:09 Consult to Pulmonology [CONS] Stat Consulting Provider: [facility] Reason for Consult: severe sepsis Time Notified: 11:09 Call Completed: Yes 02/04/17 11:28 Consult to Cardiology [CONS] Stat Comment: Consulting Provider: Cardiology [place] Reason for Consult: ST depression in leads AVL and three. elevated troponin. Call Completed: Yes Pronouncing clinician: Donna Bass <Jannette Liang - Last Filed: 02/05/17 18:29> Discharge Sum: Summary - Date and Time Date of admission: 02/04/17 08:23 - Additional Data Attending physician: Ran Bains MD Discharge Sum: Prov - Provider Primary care physician: Nikolay Stout Jr, MD Consults: 02/04/17 06:32 Consult to Oncology Hematology [CONS] Routine Consulting Provider: Jayant Ponce Reason for Consult: Thrombocytopenia Time Notified: 10:37 Call Completed: Yes 02/04/17 06:55 Consult to Surgery [CONS] Routine Consulting Provider: [facility] Reason for Consult: suspected cholecystitis (Dr Blackwood is aware of the pt) Call Completed: No 02/04/17 08:34 Consult to Urology [CONS] Stat Consulting Provider: [facility] [place] Reason for Consult: History bladder cancer Time Notified: 07:30 Call Completed: Yes 02/04/17 11:09 Consult to Pulmonology [CONS] Stat Consulting Provider: [facility] [place] Reason for Consult: severe sepsis Time Notified: 11:09 Call Completed: Yes 02/04/17 11:28 Consult to Cardiology [CONS] Stat Comment: Consulting Provider: Cardiology [facility] Reason for Consult: ST depression in leads AVL and three. elevated troponin. Call Completed: Yes - Attending Attestation I examined this patient and my medical decision-making was reviewed with the TECHNICAL STENOGRAPHER/PA/Advanced Practice Nurse/Resident Physician. I agree with the documented findings, disposition and treatment plan as described except to the extent set forth below. Patient was transferred to ICU with very poor prognosis and he had multiorgan failure very rapidly and . Family was told as well as patient his prognosis is very poor before his .
--- NOTE | 2017-02-06 06:05 | Electrocardiograph Report ---
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
--- NOTE | 2017-02-06 06:06 | Electrocardiograph Report ---
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
[2017-02-06 10:13] LABS: Hepatitis C Virus Antibody Nonreactive (Nonreactive)
== END 2017-02-05 04:30 | disposition expired | DRG 871 ==
LOC: 3ANU → SUATTDRO 04:22 → ICNU 12:10
PROVIDERS: ADMIT Internal Medicine; ATTEND Internal Medicine